=== PATIENT | female | born 1990 | race Caucasian/White ===

== ENCOUNTER 2021-08-01 17:00 | Inpatient (IN) | payer OTHER ==
[~2021-08-01] VITALS: Ht 154.9 cm; Wt 42.0 kg
[2021-08-01 11:53] LABS: RED BLOOD COUNT 4.02 M/UL (4.00-5.10); WHITE BLOOD COUNT 25.5 K/UL (4.5-11.0)
[2021-08-01 13:01] LABS: BUN/CREATININE RATIO 9 (0-10)
[~2021-08-01 17:00] MED LIST: COLACE 100MG C100 MG PO
[2021-08-02] MEDS ORDERED: DOXYCYCLINE HY100 MG PO (14:55)
[2021-08-02] MEDS ORDERED: HYDROCODON-ACE1 EAC4 PO (14:55)
[2021-08-03 03:08] LABS: CHLAMYDIA TRACHOMATIS, NAA Negative (Negative); NEISSERIA GONORRHOEAE, NAA Positive (Negative)
[2021-08-03 08:12] LABS: HIV AB/P24 AG SCREEN Non Reactive (Non Reactive)
== END 2021-08-02 16:30 | disposition home or self-care (01) | DRG 417 ==
LOC: ER1 17:00 → OR 17:00 → ER1 17:10 → CDU 18:30 → 3 EAST 22:12
PROVIDERS: Emergency Medicine; Radiology Diagnostic Radiology; ADMIT Surgery
PROC: 0FT44ZZ Resection of Gallbladder, Percutaneous Endoscopic Approach (ICD-10-PCS; principal; 2021-08-01 17:30)
DX: K81.0 Acute cholecystitis (principal); N73.3 Female acute pelvic peritonitis; Z20.822 Contact with and (suspected) exposure to COVID-19; N83.202 Unspecified ovarian cyst, left side; K21.9 Gastro-esophageal reflux disease without esophagitis; B19.20 Unspecified viral hepatitis C without hepatic coma; N73.9 Female pelvic inflammatory disease, unspecified; F17.210 Nicotine dependence, cigarettes, uncomplicated; Z88.1 Allergy status to other antibiotic agents
CPT/HCPCS: 80053; 81001; 83690; 84703; 85025; 87070; 87086; 87205; 87389; 96374; 96375; 99285; J0690; J1100; J1170; J1885; J2001; J2250; J2270; J2370; J2405; J2704; J3010; J7120; Q9967; U0002